=== PATIENT | female | born 1975 | race Caucasian/White ===

== ENCOUNTER 2017-09-16 05:43 | Observation (INO) ==
[2017-09-16 07:24] LABS: Basophils % 0.3 %; Eosinophils # 0.5 K/mcL (0.0-0.6); Eosinophils % 4.8 %; Hemoglobin 15.3 g/dL (11.5-15.4); Immature Granulocytes % 0.5 % (0-4); Lymphocytes # 1.5 K/mcL (0.6-4.6); Lymphocytes % 15.2 %; Mean Corpuscular HGB Conc 34.8 g/dL (31.6-35.5); Mean Corpuscular Hemoglobin 30.3 pg (28.0-33.3); Mean Corpuscular Volume 87.1 fL (83.0-100.0); Monocytes # 0.6 K/mcL (0.0-1.3); Monocytes % 5.9 %; Platelet Count 265 K/mcL (140-400); Red Blood Count 5.05 M/mcL (3.82-4.97); Red Cell Distribution Width 11.9 % (11.5-14.5); Segmented Neutrophils % 73.3 %
[2017-09-16 07:24] LABS: Bilirubin,Urine Negative (Negative); Blood,Urine Small (Negative); Clarity,Urine Clear (Clear); Color,Urine Yellow (Yellow); Glucose,Urine (UA) Normal (Normal); Ketones,Urine >=160 mg/dL (Negative); Leukocyte Esterase,Urine Negative (Negative); Nitrite,Urine Negative (Negative); PH,Urine 5.5 pH Units (5.0-8.0); Protein,Urine 100 mg/dL (Neg-Trace); Specific Gravity,Urine 1.023 (1.010-1.025); Urobilinogen,Urine Normal (Normal)
[2017-09-16] MEDS ORDERED: Ondansetron 4 MG/2 ML VIAL IVP ONE (07:26)
[2017-09-16] MEDS ORDERED: 0.9 % Sodium Chloride 1,000 ML IVC ONE (07:26)
[2017-09-16 07:27] LABS: Bacteria,Urine None Seen per hpf (None-Few); Hyaline Casts,Urine None Seen per lpf (None-Few); RBC,Urine 0-3 per hpf (0-3); Squamous Epithelial Cell,Urine Many per lpf (None-Few); WBC,Urine 0-3 per hpf (0-3)
--- NOTE | 2017-09-16 07:31 | Emergency Department Note ---
Disposition Clinical Impression: Clostridium difficile infection, Dehydration Nausea and vomiting Qualifiers: Vomiting type: unspecified Vomiting Intractability: intractable Qualified Code( s): R11.2 - Nausea with vomiting, unspecified Disposition: Admitted As Inpatient Condition: Undetermined Referrals: Janice Arevalo CNP [Primary Care Provider] - Forms: ED Satisfaction Letter Time of Disposition: 08:05 Nausea/Vomiting/Diarrhea HPI - General Chief complaint: ED Nausea/Vomiting/Diarrhea Stated complaint: C-Diff Time Seen by Provider: 09/16/17 06:33 Source: patient Mode of arrival: ambulatory Limitations: no limitations Nursing Notes Reviewed: Yes Vital Signs Reviewed: Yes - History of Present Illness HPI Narrative: 41-year-old male with diagnosis of Clostridium difficile diagnosed 2 days ago arrives to the emergency department with complaint of continued nausea and vomiting unable to take her medications or keep hydrated. The patient states that she has been experiencing intermittent episodes of upset stomach and not feeling well over the course of the past 3 weeks. The patient states that the diagnosis was made 2 days ago. By her PCP. She was given IV fluids and sent home on by mouth vancomycin. The patient states that she has continued to experience symptoms but she is now unable take her medication due to extreme nausea and vomiting. She denies any other complaints at this time. She does have dry mucous membranes. - Related Data Allergies Allergy/AdvReac Type Severity Reaction Status Date / Time No Known Allergies Allergy Verified 09/16/17 05:46 All systems ED: reviewed and negative except as stated. Constitutional: Denies: fever, chills, weakness ENT ED: Denies: throat pain, dysphagia Cardiovascular: Denies: chest pain Respiratory: Denies: dyspnea Gastrointestinal: Reports: nausea, vomiting, diarrhea. Denies: abdominal pain, constipation, hematemesis, melena, hematochezia Genitourinary: Denies: urgency, dysuria Musculoskeletal: Denies: back pain, neck pain Integumentary: Denies: rash Past Medical History - Past Medical History Attestation: Yes The following information was validated with the patient. Source: patient, old records reviewed Medical history: Reports: no medical history Surgical history: Reports: non-contributory Psychiatric history: Reports: no psych history - Social History Smoking Status: Never smoker Alcohol use: Reports: none Drug use: Reports: none Physical Exam - General Limitations: no limitations General appearance: alert, in no apparent distress - Head Head exam: atraumatic, normocephalic, normal inspection - Eye Eye exam: Present: normal appearance, PERRL, EOMI - ENT ENT exam: normal exam, normal oropharynx, mucous membranes dry - Neck Neck exam: Present: normal inspection, full ROM, trachea midline - Chest Chest inspection: Present: normal inspection, symmetric chest wall rise - Respiratory Respiratory exam: Present: normal lung sounds bilaterally - Cardiovascular Cardiovascular exam: Present: normal rhythm, tachycardia, normal heart sounds - Abdominal Exam Abdominal exam: Present: soft, Non-Tender. Absent: tenderness, distention, guarding, rebound, rigidity, pulsatile mass - Extremities Exam Extremities exam: Present: normal inspection, full ROM. Absent: tenderness, pedal edema - Neurological Exam Neurological exam: Present: alert, oriented X3 - Skin Skin exam: Present: warm, dry, intact, normal color Course Vital Signs Temperature 97.9 F 09/16/17 05:43 Pulse Rate 99 09/16/17 05:43 Respiratory Rate 20 09/16/17 05:43 Blood Pressure 100/67 09/16/17 05:43 O2 Sat by Pulse Oximetry 97 09/16/17 05:43 Temperature 97.9 F 09/16/17 05:43 Pulse Rate 99 09/16/17 05:43 Respiratory Rate 20 09/16/17 05:43 Blood Pressure 100/67 09/16/17 05:43 O2 Sat by Pulse Oximetry 97 09/16/17 05:43 Oxygen Delivery Oxygen Delivery Room Air Nausea/Vomiting/Diarrhea - MDM Narrative Medical decision making narrative: Asians workup in the emergency department demonstrates a large amount of ketones in her urine. Given the patient's inability to keep down her medications which she is on by mouth vancomycin, combined with a large amount ketones in urine, we will admit the patient to the hospital for IV hydration, nausea control. The patient will continue to receive her oral vancomycin. The patient was made aware and agrees to plan. Patient will be admitted to the hospitalist at this time. Accepted by Dr. Rodríguez. - Lab Data Lab results reviewed: Yes I reviewed the patient's lab results. Result diagrams: 09/16/17 07:11 09/16/17 07:11 Lab Results 09/16/17 09/16/17 09/16/17 Range/Units 07:11 07:11 07:14 WBC 9.6 D (4.3-11.1) K/mcL RBC 5.05 H (3.82-4.97) M/mcL Hgb 15.3 (11.5-15.4) g/dL Hct 44.0 (35.3-44.9) % MCV 87.1 (83.0-100.0) fL MCH 30.3 (28.0-33.3) pg MCHC 34.8 (31.6-35.5) g/dL RDW 11.9 (11.5-14.5) % Plt Count 265 (140-400) K/mcL MPV 9.0 L (9.4-12.4) fL Immature Gran % 0.5 (0-4) % Seg Neutrophils % 73.3 % Lymphocytes % 15.2 % Monocytes % 5.9 % Eosinophils % 4.8 % Basophils % 0.3 % Neutrophils # 7.0 (1.6-8.9) K/mcL Lymphocytes # 1.5 (0.6-4.6) K/mcL Monocytes # 0.6 (0.0-1.3) K/mcL Eosinophils # 0.5 (0.0-0.6) K/mcL Basophils # 0.0 (0.0-0.2) K/mcL Sodium 134 L (136-145) mEq/L Potassium 4.4 (3.5-5.1) mEq/L Chloride 105 (98-107) mEq/L Carbon Dioxide 11 L (23-29) mEq/L BUN 10 (6-20) mg/dL Creatinine 0.91 (0.60-1.20) mg/dL Est GFR ( Amer) > 60 (> 60) Est GFR (Non-Af Amer) > 60 (> 60) BUN/Creatinine Ratio 11 (6-26) Glucose 78 (70-105) mg/dL Calculated Osmolality 276 L (280-300) Calcium 9.2 (8.6-10.3) mg/dL Total Bilirubin 0.4 (0.3-1.0) mg/dL AST 10 L (13-39) Units/L ALT 8 (7-52) Units/L Alkaline Phosphatase 73 (34-104) Units/L Serum Total Protein 7.8 (6.4-8.9) g/dL Albumin 4.6 (3.5-5.7) g/dL Globulin 3.2 (2.4-3.5) g/dL Albumin/Globulin Ratio 1.4 (1.1-2.2) Lipase 35 (11-82) Units/L Urine Color (Yellow) Urine Clarity (Clear) Urine pH (5.0-8.0) pH Units Ur Specific [place] (1.010-1.025) Urine Protein (Neg-Trace) mg/dL Urine Glucose (UA) (Normal) mg/dL Urine Ketones (Negative) mg/dL Urine Blood (Negative) Urine Nitrite (Negative) Urine Bilirubin (Negative) Urine Urobilinogen (Normal) mg/dL Ur Leukocyte Esterase (Negative) Urine Microscopic RBC (0-3) per hpf Urine Microscopic WBC (0-3) per hpf Ur Squamous Epith Cells (None-Few) per lpf Urine Bacteria (None-Few) per hpf Hyaline Casts (None-Few) per lpf Ur Culture Indicated? (NO) Urine Test Negative (Negative) 09/16/17 Range/Units 07:19 WBC (4.3-11.1) K/mcL RBC (3.82-4.97) M/mcL Hgb (11.5-15.4) g/dL Hct (35.3-44.9) % MCV (83.0-100.0) fL MCH (28.0-33.3) pg MCHC (31.6-35.5) g/dL RDW (11.5-14.5) % Plt Count (140-400) K/mcL MPV (9.4-12.4) fL Immature Gran % (0-4) % Seg Neutrophils % % Lymphocytes % % Monocytes % % Eosinophils % % Basophils % % Neutrophils # (1.6-8.9) K/mcL Lymphocytes # (0.6-4.6) K/mcL Monocytes # (0.0-1.3) K/mcL Eosinophils # (0.0-0.6) K/mcL Basophils # (0.0-0.2) K/mcL Sodium (136-145) mEq/L Potassium (3.5-5.1) mEq/L Chloride (98-107) mEq/L Carbon Dioxide (23-29) mEq/L BUN (6-20) mg/dL Creatinine (0.60-1.20) mg/dL Est GFR ( Amer) (> 60) Est GFR (Non-Af Amer) (> 60) BUN/Creatinine Ratio (6-26) Glucose (70-105) mg/dL Calculated Osmolality (280-300) Calcium (8.6-10.3) mg/dL Total Bilirubin (0.3-1.0) mg/dL AST (13-39) Units/L ALT (7-52) Units/L Alkaline Phosphatase (34-104) Units/L Serum Total Protein (6.4-8.9) g/dL Albumin (3.5-5.7) g/dL Globulin (2.4-3.5) g/dL Albumin/Globulin Ratio (1.1-2.2) Lipase (11-82) Units/L Urine Color Yellow (Yellow) Urine Clarity Clear (Clear) Urine pH 5.5 (5.0-8.0) pH Units Ur Specific [place] 1.023 (1.010-1.025) Urine Protein 100 H (Neg-Trace) mg/dL Urine Glucose (UA) Normal (Normal) mg/dL Urine Ketones >=160 H (Negative) mg/dL Urine Blood Small H (Negative) Urine Nitrite Negative (Negative) Urine Bilirubin Negative (Negative) Urine Urobilinogen Normal (Normal) mg/dL Ur Leukocyte Esterase Negative (Negative) Urine Microscopic RBC 0-3 (0-3) per hpf Urine Microscopic WBC 0-3 (0-3) per hpf Ur Squamous Epith Cells Many H (None-Few) per lpf Urine Bacteria None Seen (None-Few) per hpf Hyaline Casts None Seen (None-Few) per lpf Ur Culture Indicated? NO (NO) Urine Test (Negative)
[2017-09-16 07:50] LABS: Alanine Aminotransferase 8 Units/L (7-52); Albumin 4.6 g/dL (3.5-5.7); Albumin/Globulin Ratio 1.4 (1.1-2.2); Alkaline Phosphatase 73 Units/L (34-104); Aspartate Amino Transferase 10 Units/L (13-39); BUN/Creatinine Ratio 11 (6-26); Bilirubin,Total 0.4 mg/dL (0.3-1.0); Blood Urea Nitrogen 10 mg/dL (6-20); Calcium 9.2 mg/dL (8.6-10.3); Carbon Dioxide 11 mEq/L (23-29); Chloride 105 mEq/L (98-107); Globulin 3.2 g/dL (2.4-3.5); Glucose 78 mg/dL (70-105); Lipase 35 Units/L (11-82); Osmolality,Calculated 276 (280-300); Potassium 4.4 mEq/L (3.5-5.1); Sodium 134 mEq/L (136-145); Total Protein 7.8 g/dL (6.4-8.9); eGFR For Non-African Americans > 60 (> 60)
--- NOTE | 2017-09-16 08:43 | Emergency Department Note ---
Disposition Clinical Impression: Clostridium difficile infection, Dehydration Nausea and vomiting Qualifiers: Vomiting type: unspecified Vomiting Intractability: intractable Qualified Code( s): R11.2 - Nausea with vomiting, unspecified Disposition: Admitted As Inpatient Condition: Fair Referrals: Janice Arevalo CNP [Primary Care Provider] - General Adult HPI - General Chief complaint: ED Nausea/Vomiting/Diarrhea Stated complaint: C-Diff Time Seen by Provider: 09/16/17 06:33 Source: patient Mode of arrival: ambulatory Limitations: no limitations Nursing Notes Reviewed: Yes Vital Signs Reviewed: Yes - History of Present Illness Pain Scale: 0 - Related Data Home Medications Medication Instructions Recorded Confirmed Fluticasone Propionate Nasal 2 spr NS DAILY PRN 09/16/17 09/16/17 [Flonase] Norethindrone [Norethindrone] 0.35 mg PO DAILY 09/16/17 09/16/17 Vits #90/Iron Fum/FA 1 tab PO DAILY 09/16/17 09/16/17 [ Formula Tablet] Vitamin B Complex [B Complex] 1 tab PO DAILY 09/16/17 09/16/17 Allergies Allergy/AdvReac Type Severity Reaction Status Date / Time No Known Allergies Allergy Verified 09/16/17 08:29 Constitutional: Denies: fever, chills, weakness ENT ED: Denies: throat pain, dysphagia Cardiovascular: Denies: chest pain Respiratory: Denies: dyspnea Gastrointestinal: Reports: nausea, vomiting, diarrhea. Denies: abdominal pain, constipation, hematemesis, melena, hematochezia Genitourinary: Denies: urgency, dysuria Musculoskeletal: Denies: back pain, neck pain Integumentary: Denies: rash Past Medical History - Past Medical History Medical history: Reports: no medical history Surgical history: Reports: non-contributory Psychiatric history: Reports: no psych history - Social History Smoking Status: Never smoker Alcohol use: Reports: none Drug use: Reports: none Physical Exam - General Limitations: no limitations General appearance: alert, in no apparent distress Course Vital Signs Temperature 97.9 F 09/16/17 05:43 Pulse Rate 99 09/16/17 05:43 Respiratory Rate 20 09/16/17 05:43 Blood Pressure 100/67 09/16/17 05:43 O2 Sat by Pulse Oximetry 97 09/16/17 05:43 Temperature 97.9 F 09/16/17 05:43 Pulse Rate 99 09/16/17 05:43 Respiratory Rate 20 09/16/17 05:43 Blood Pressure 100/67 09/16/17 05:43 O2 Sat by Pulse Oximetry 97 09/16/17 05:43 Oxygen Delivery Oxygen Delivery Room Air Medical Decision Making - Lab Data Result diagrams: 09/16/17 07:11 09/16/17 07:11 Lab Results 09/16/17 09/16/17 09/16/17 Range/Units 07:11 07:11 07:14 WBC 9.6 D (4.3-11.1) K/mcL RBC 5.05 H (3.82-4.97) M/mcL Hgb 15.3 (11.5-15.4) g/dL Hct 44.0 (35.3-44.9) % MCV 87.1 (83.0-100.0) fL MCH 30.3 (28.0-33.3) pg MCHC 34.8 (31.6-35.5) g/dL RDW 11.9 (11.5-14.5) % Plt Count 265 (140-400) K/mcL MPV 9.0 L (9.4-12.4) fL Immature Gran % 0.5 (0-4) % Seg Neutrophils % 73.3 % Lymphocytes % 15.2 % Monocytes % 5.9 % Eosinophils % 4.8 % Basophils % 0.3 % Neutrophils # 7.0 (1.6-8.9) K/mcL Lymphocytes # 1.5 (0.6-4.6) K/mcL Monocytes # 0.6 (0.0-1.3) K/mcL Eosinophils # 0.5 (0.0-0.6) K/mcL Basophils # 0.0 (0.0-0.2) K/mcL Sodium 134 L (136-145) mEq/L Potassium 4.4 (3.5-5.1) mEq/L Chloride 105 (98-107) mEq/L Carbon Dioxide 11 L (23-29) mEq/L BUN 10 (6-20) mg/dL Creatinine 0.91 (0.60-1.20) mg/dL Est GFR ( Amer) > 60 (> 60) Est GFR (Non-Af Amer) > 60 (> 60) BUN/Creatinine Ratio 11 (6-26) Glucose 78 (70-105) mg/dL Calculated Osmolality 276 L (280-300) Calcium 9.2 (8.6-10.3) mg/dL Total Bilirubin 0.4 (0.3-1.0) mg/dL AST 10 L (13-39) Units/L ALT 8 (7-52) Units/L Alkaline Phosphatase 73 (34-104) Units/L Serum Total Protein 7.8 (6.4-8.9) g/dL Albumin 4.6 (3.5-5.7) g/dL Globulin 3.2 (2.4-3.5) g/dL Albumin/Globulin Ratio 1.4 (1.1-2.2) Lipase 35 (11-82) Units/L Urine Color (Yellow) Urine Clarity (Clear) Urine pH (5.0-8.0) pH Units Ur Specific [place] (1.010-1.025) Urine Protein (Neg-Trace) mg/dL Urine Glucose (UA) (Normal) mg/dL Urine Ketones (Negative) mg/dL Urine Blood (Negative) Urine Nitrite (Negative) Urine Bilirubin (Negative) Urine Urobilinogen (Normal) mg/dL Ur Leukocyte Esterase (Negative) Urine Microscopic RBC (0-3) per hpf Urine Microscopic WBC (0-3) per hpf Ur Squamous Epith Cells (None-Few) per lpf Urine Bacteria (None-Few) per hpf Hyaline Casts (None-Few) per lpf Ur Culture Indicated? (NO) Urine Test Negative (Negative) 09/16/17 Range/Units 07:19 WBC (4.3-11.1) K/mcL RBC (3.82-4.97) M/mcL Hgb (11.5-15.4) g/dL Hct (35.3-44.9) % MCV (83.0-100.0) fL MCH (28.0-33.3) pg MCHC (31.6-35.5) g/dL RDW (11.5-14.5) % Plt Count (140-400) K/mcL MPV (9.4-12.4) fL Immature Gran % (0-4) % Seg Neutrophils % % Lymphocytes % % Monocytes % % Eosinophils % % Basophils % % Neutrophils # (1.6-8.9) K/mcL Lymphocytes # (0.6-4.6) K/mcL Monocytes # (0.0-1.3) K/mcL Eosinophils # (0.0-0.6) K/mcL Basophils # (0.0-0.2) K/mcL Sodium (136-145) mEq/L Potassium (3.5-5.1) mEq/L Chloride (98-107) mEq/L Carbon Dioxide (23-29) mEq/L BUN (6-20) mg/dL Creatinine (0.60-1.20) mg/dL Est GFR ( Amer) (> 60) Est GFR (Non-Af Amer) (> 60) BUN/Creatinine Ratio (6-26) Glucose (70-105) mg/dL Calculated Osmolality (280-300) Calcium (8.6-10.3) mg/dL Total Bilirubin (0.3-1.0) mg/dL AST (13-39) Units/L ALT (7-52) Units/L Alkaline Phosphatase (34-104) Units/L Serum Total Protein (6.4-8.9) g/dL Albumin (3.5-5.7) g/dL Globulin (2.4-3.5) g/dL Albumin/Globulin Ratio (1.1-2.2) Lipase (11-82) Units/L Urine Color Yellow (Yellow) Urine Clarity Clear (Clear) Urine pH 5.5 (5.0-8.0) pH Units Ur Specific [place] 1.023 (1.010-1.025) Urine Protein 100 H (Neg-Trace) mg/dL Urine Glucose (UA) Normal (Normal) mg/dL Urine Ketones >=160 H (Negative) mg/dL Urine Blood Small H (Negative) Urine Nitrite Negative (Negative) Urine Bilirubin Negative (Negative) Urine Urobilinogen Normal (Normal) mg/dL Ur Leukocyte Esterase Negative (Negative) Urine Microscopic RBC 0-3 (0-3) per hpf Urine Microscopic WBC 0-3 (0-3) per hpf Ur Squamous Epith Cells Many H (None-Few) per lpf Urine Bacteria None Seen (None-Few) per hpf Hyaline Casts None Seen (None-Few) per lpf Ur Culture Indicated? NO (NO) Urine Test (Negative) Attestation Statement - Attestation Attestation: I, Hermes Stern, examined this patient and my medical decision-making was reviewed with the HADOOP ADMINISTRATOR/PA/Advanced Practice Nurse/Resident Physician. I agree with the documented findings, disposition and treatment plan as described except to the extent set forth below. 41-year-old female presents emergency Department with concerns of persistent nausea vomiting diarrhea. Patient states she has had her symptoms over the past 2 weeks. She was recently diagnosed with C. difficile by her primary care provider. She was prescribed oral vancomycin to take at home however she is been unable to keep down medication secondary to persistent nausea and vomiting. Patient's laboratory results are consistent with dehydration. Patient did not feel comfortable to return home secondary to her persistent nausea despite antiemetics in the emergency department. She will be admitted for further care and evaluation and observation.
--- NOTE | 2017-09-16 09:59 | Internal Med History&Physical ---
Date of Encounter: 09/16/17 Time of Encounter: 08:00 Internal Medicine - H&P: HPI Chief complaint: Nausea and diarrhea Admitted From: Home Plans for Post Hospital Care: Home History of present illness: Patient is a 41-year-old female with no significant past medical history who presents to the ER on 09/16/17 due to nausea and vomiting with persistent diarrhea. She reports that her symptoms started approximately 2 weeks ago and was diagnosed recently by her primary care provider was C. difficile and started on oral vancomycin yesterday. Patient presented to the ER however due to persistent nausea. 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 In the ER, labs were relatively unremarkable but patient was admitted due to nausea and for IV fluids. Past Med Surg Social Fam HX - Past Medical History Medical history: no medical history Psychiatric history: no psych history - Past Surgical History Surgical History: non-contributory Additional surgical history: wisdom teeth - Social History Smoking Status: Never smoker Smokeless Tobacco Status: No Alcohol use: none Drug use: none - Additional Family History Additional family history: Noncontributory Internal Medicine - H&P: Meds Fluticasone Propionate Nasal [Flonase] 2 spr NS DAILY PRN 09/16/17 [History] Norethindrone [Norethindrone] 0.35 mg PO DAILY 09/16/17 [History] Vits #90/Iron Fum/FA [ Formula Tablet] 1 tab PO DAILY 09/16/17 [History] Vitamin B Complex [B Complex] 1 tab PO DAILY 09/16/17 [History] 3 Allergy/AdvReac Type Severity Reaction Status Date / Time No Known Allergies Allergy Verified 09/16/17 08:29 All Systems PM: A 10-system review of systems was performed and is negative for pertinent findings except as documented above in the HPI. - Constitutional Vitals: Temp Pulse Resp BP Pulse Ox 97.9 F 99 20 100/67 97 09/16/17 05:43 09/16/17 05:43 09/16/17 05:43 09/16/17 05:43 09/16/17 05:43 General appearance: Present: A&O X 3, no acute distress - Eye Eye exam: Present: normal appearance - ENT ENT exam: Present: mucous membranes dry - Respiratory Respiratory exam: Present: CTAB. Absent: accessory muscle use, rales, rhonchi, wheezes - Cardiovascular Cardiovascular exam: Present: RRR, +S1, +S2. Absent: diastolic murmur, gallop, rubs, systolic murmur - GI/Abdominal GI/Abdominal exam: Present: normal bowel sounds, soft, no peritoneal signs. Absent: distended, tenderness - Extremities Exam Extremities exam: Absent: pedal edema - Neurological Exam Neurological exam: Present: oriented X3 - Psychiatric Psychiatric exam: Present: normal mood - Skin Skin exam: Present: normal color Internal Med - H&P Results - Labs CBC & Chem 7: 09/16/17 07:11 09/16/17 07:11 - Assessment and plan (1) Clostridium difficile infection Current Visit: Yes Status: Acute Assessment and plan: Patient reports of having diarrhea since 08/29/17 and was recently diagnosed with C. difficile by primary care provider and started on oral vancomycin on 09/15 Continue oral vancomycin (2) Dehydration Current Visit: Yes Status: Acute Assessment and plan: Patient with volume loss secondary to diarrhea Will continue IV fluids (3) Nausea and vomiting Current Visit: Yes Status: Acute Assessment and plan: Give IV Zofran as needed Qualifiers: Vomiting type: unspecified Vomiting Intractability: intractable Qualified Code(s): R11.2 - Nausea with vomiting, unspecified (4) DVT prophylaxis Current Visit: Yes Status: Acute Assessment and plan: Due to patient breast-feeding will place SCDs - Time Spent With Patient Total time spent is greater than 50% in coordination of care (as documented) at patient's floor/unit and/or counseling patient:
[2017-09-16] MEDS ORDERED: Naloxone 0.4 MG/ML INJ IVP PRN (10:02)
[2017-09-16] MEDS ORDERED: Fluticasone Propionate Nasal 50 MCG/SPRAY BOTTLE NS PRN (10:06)
[2017-09-16] MEDS ORDERED: 0.9 % Sodium Chloride 1,000 ML IVC SCH (10:15)
[2017-09-16] MEDS: Acetaminophen 325 MG TABLET PO PRN ×2 (11:35→21:52)
[2017-09-16] MEDS: Vancomycin Oral Soln 125 MG/2.5 ML UDC PO SCH ×3 (13:03→21:56)
[2017-09-16] MEDS: Ondansetron 4 MG/2 ML VIAL IVP PRN (17:15)
[2017-09-16] MEDS: 0.9 % Sodium Chloride 1,000 ML IVC SCH (17:15)
[2017-09-17 04:42] LABS: Basophils # 0.1 K/mcL (0.0-0.2); Basophils % 0.7 %; Eosinophils # 1.2 K/mcL (0.0-0.6); Eosinophils % 15.8 %; Hematocrit 38.6 % (35.3-44.9); Immature Granulocytes % 0.4 % (0-4); Lymphocytes # 2.1 K/mcL (0.6-4.6); Lymphocytes % 27.8 %; Mean Corpuscular HGB Conc 34.7 g/dL (31.6-35.5); Mean Corpuscular Hemoglobin 29.6 pg (28.0-33.3); Mean Corpuscular Volume 85.2 fL (83.0-100.0); Mean Platelet Volume 9.3 fL (9.4-12.4); Monocytes # 0.7 K/mcL (0.0-1.3); Monocytes % 9.5 %; Neutrophils # 3.4 K/mcL (1.6-8.9); Platelet Count 266 K/mcL (140-400); Red Blood Count 4.53 M/mcL (3.82-4.97); Red Cell Distribution Width 12.1 % (11.5-14.5); Segmented Neutrophils % 45.8 %
[2017-09-17 04:45] LABS: Hemoglobin 13.4 g/dL (11.5-15.4)
[2017-09-17 04:55] LABS: BUN/Creatinine Ratio 9 (6-26); Blood Urea Nitrogen 7 mg/dL (6-20); Calcium 8.2 mg/dL (8.6-10.3); Carbon Dioxide 14 mEq/L (23-29); Chloride 111 mEq/L (98-107); Glucose 96 mg/dL (70-105); Osmolality,Calculated 276 (280-300); Potassium 3.7 mEq/L (3.5-5.1); Sodium 134 mEq/L (136-145); eGFR For Non-African Americans > 60 (> 60)
[2017-09-17] MEDS: 0.9 % Sodium Chloride 1,000 ML IVC SCH ×3 (06:47→16:55)
[2017-09-17] MEDS: Vancomycin Oral Soln 125 MG/2.5 ML UDC PO SCH ×4 (08:27→20:19)
[2017-09-17] MEDS: Prenatal Vit/FA 1 EACH TABLET PO SCH (08:27)
[2017-09-17] MEDS: Vitamin B Complex/Vit C/Vit E 1 EACH TABLET PO SCH (08:27)
[2017-09-17] MEDS: Ondansetron 4 MG/2 ML VIAL IVP PRN (08:27)
[2017-09-17] MEDS: NORETHINDRONE 0.35 MG PO SCH (08:28)
--- NOTE | 2017-09-17 11:17 | Internal Med Progress Note ---
Hospitalist Progress Note - Encounter Date of Encounter: 09/17/17 Time of Encounter: 11:10 - Subjective Interval History: Patient is still has nausea but denies vomiting with mild intermittent abdominal cramping, is still watery runny diarrhea but seems slowing down slightly. Denies fever chills headache dizziness chest pain shortness of breath urinary complaint. Reviewed of the lab - Exam Vitals: Temp Pulse Resp BP Pulse Ox 98.0 F 79 14 95/60 97 09/17/17 06:39 09/17/17 06:39 09/17/17 06:39 09/17/17 06:39 09/17/17 06:39 Exam: General appearance: No acute distress, A&O X 3 Head exam: Atraumatic Eye exam: EOMI, PERRLA ENT exam: Dry oral mucosa Neck nontender, supple Respiratory exam: Clear to auscultation bilaterally Cardiovascular exam: Regular rate and rhythm, no systolic murmur Abdominal exam: Soft, nontender, nondistended, positive bowel sounds Extremities exam: No calf tenderness, no pedal edema Present: Neurological exam: Alert, awake, oriented 3, CN II-XII intact, no focal deficits. No facial droop. Normal speech. - Assessment and Plan (1) Clostridium difficile infection Current Visit: Yes Status: Acute Assessment and Plan: Patient reports of having diarrhea since 08/29/17 and was recently diagnosed with C. difficile by primary care provider and started on oral vancomycin on 09/15 but could not take regularly. Her symptom is started to get worse especially with nausea and she was not able to keep down anything by mouth and felt like dehydrated therefore decided to come to ER. Continue supportive treatment with IV fluid as patient had low blood pressure therefore increase IV fluid rate 125 MR per hour for 1 L and will reevaluate the patient before deciding further IV fluid rate, clear liquid, PPI, probiotics and continue oral vancomycin. (2) Dehydration Current Visit: Yes Status: Acute Assessment and Plan: Patient with volume loss secondary to diarrhea Will continue IV fluids as mentioned above (3) Nausea and vomiting Current Visit: Yes Status: Acute Assessment and Plan: Give IV Zofran as needed (4) DVT prophylaxis Current Visit: Yes Status: Acute Assessment and Plan: SCDs and early ambulation - Time Spent with Patient Total time spent is greater than 50% in coordination of care (as documented) at patient's floor/unit and/or counseling patient: 25 - 35 minutes Internal Medicine: Result - Labs CBC & Chem 7: 09/17/17 04:06 09/17/17 04:06 Labs: Short CBC 09/17/17 Range/Units 04:06 WBC 7.5 (4.3-11.1) K/mcL Hgb 13.4 D (11.5-15.4) g/dL Hct 38.6 (35.3-44.9) % Plt Count 266 (140-400) K/mcL Neutrophils # 3.4 (1.6-8.9) K/mcL BMP 09/17/17 04:06 Sodium 134 L Potassium 3.7 Chloride 111 H Carbon Dioxide 14 L BUN 7 Creatinine 0.76 Glucose 96 Calcium 8.2 L Consult Discharge Plan - Plan Referrals: Janice Arevalo, HOUSEKEEPING STAFF [Primary Care Provider] - (3) Nausea and vomiting Qualifiers: Vomiting type: unspecified Vomiting Intractability: intractable Qualified Code(s): R11.2 - Nausea with vomiting, unspecified
[2017-09-17] MEDS: Pantoprazole 40 MG VIAL IVP SCH (13:21)
[2017-09-17] MEDS: Lactobacillus 1 EACH CAP.SPRINK PO SCH ×2 (13:22→20:19)
[2017-09-18] MEDS: 0.9 % Sodium Chloride 1,000 ML IVC SCH ×2 (00:22→08:35)
[2017-09-18] MEDS: Lactobacillus 1 EACH CAP.SPRINK PO SCH (08:34)
[2017-09-18] MEDS: Pantoprazole 40 MG VIAL IVP SCH (08:34)
[2017-09-18] MEDS: Prenatal Vit/FA 1 EACH TABLET PO SCH (08:34)
[2017-09-18] MEDS: Vancomycin Oral Soln 125 MG/2.5 ML UDC PO SCH ×2 (08:35→13:20)
[2017-09-18] MEDS: NORETHINDRONE 0.35 MG PO SCH (08:36)
[2017-09-18] MEDS: Vitamin B Complex/Vit C/Vit E 1 EACH TABLET PO SCH (08:36)
--- NOTE | 2017-09-18 14:54 | Discharge Summary ---
- NOTES TO OUTPATIENT PROVIDER Notes to Outpatient Provider: Recommend routine hospital follow-up Date of Encounter: 09/18/17 Time of Encounter: 14:53 - Discharge Diagnosis (1) Clostridium difficile infection Priority: Primary Status: Acute (2) Dehydration Priority: Primary Status: Acute (3) Nausea and vomiting Priority: Primary Status: Acute Qualifiers: Vomiting type: unspecified Vomiting Intractability: intractable Qualified Code(s): R11.2 - Nausea with vomiting, unspecified Hospital course: Ms. Negron is a 41 year old female with no significant past medical history presented to [facility] on 09/16/2017 with complaints of nausea vomiting and diarrhea. She was found to have C. difficile and was admitted for IV hydration and treatment of C. difficile. Patient reported being diagnosed outpatient by her PCP with C. difficile was started on oral vancomycin. No recent ATB use but has done a lot of recent travel therefore exposure unknown. Patient reported that vancomycin require prior authorization and she was given 5 day supply by her PCP. She was unable to tolerate oral intake therefore presented to ER. She was treated with bowel rest and IV fluids with improvement in symptoms. On day of discharge she is significantly improved. Says number and frequency of stools have decreased. She is tolerating regular diet. Requesting discharge home. Patient says she has 5 days of oral vancomycin at home and she contacted her outpatient pharmacy to agree to give for 3 days worth while they are waiting for prior authorization. Patient received 48 hours of oral vancomycin while inpatient. Discharge home and advised to continue taking vancomycin 125 mg 4 times a day to complete a total course of 10 days. Patient will follow-up with PCP. Discharge discussed with: patient (Seen and examined at bedside. Patient says she feels significantly improved and once to discharge home today. Says she has 5 days of oral vancomycin at home from her PCP and her pharmacy has agreed to give her an additional 3 days worth for a total of 8 days. Patient received 2 days' worth while in the hospital therefore she will have a total of 10 days of therapy when she is discharge. Advised to follow-up with her PCP.) - Time Spent with Patient Total time spent providing and/or coordinating discharge services: - Discharge Medications Prescriptions: Vancomycin HCl 125 mg PO QID 10 Days #40 cap Home Medications: Fluticasone Propionate Nasal [Flonase] 2 spr NS DAILY PRN 09/16/17 [History] Norethindrone 0.35 mg PO DAILY 09/16/17 [History] Vits #90/Iron Fum/FA [ Formula Tablet] 1 tab PO DAILY 09/16/17 [History] Vitamin B Complex [B Complex] 1 tab PO DAILY 09/16/17 [History] Vancomycin HCl 125 mg PO QID 10 Days #40 cap 09/18/17 [Rx] Allergies/Adverse Reactions: 3 Allergy/AdvReac Type Severity Reaction Status Date / Time No Known Allergies Allergy Verified 09/16/17 08:29 Date of admission: 09/16/17 08:09 Primary care physician: Janice Arevalo CNP Discharging clinician: Gabriella Wilson Anticipated date of discharge: 09/18/17 - Constitutional Vitals: Temp Pulse Resp BP Pulse Ox 97.8 F 78 16 99/68 98 09/18/17 10:42 09/18/17 10:42 09/18/17 10:42 09/18/17 10:42 09/18/17 10:42 General appearance: Present: A&O X 3, no acute distress - Head Head exam: Present: atraumatic, normocephalic - Eye Eye exam: Present: PERRL, conjuntiva pink, sclera anicteric Pupils: Present: PERRL - Neck Neck exam general surgery: Present: supple, trachea midline. Absent: lymphadenopathy - Respiratory Respiratory exam: Present: CTAB. Absent: accessory muscle use, rales, rhonchi, wheezes - Cardiovascular Cardiovascular exam: Present: RRR, +S1, +S2. Absent: diastolic murmur, gallop, rubs, systolic murmur - GI/Abdominal GI/Abdominal exam: Present: normal bowel sounds, soft, no peritoneal signs. Absent: distended, tenderness - Extremities Exam Extremities exam: Present: warm, radial pulses palpable and symmetrical. Absent : calf tenderness, cyanotic, pedal edema - Neurological Exam Neurological exam: Present: CN II-XII intact, oriented X3, no focal deficits. Absent: pronater drift, facial droop, speech deficit - Skin Skin exam: Present: dry, intact - Patient Status Disposition: Home, Self-Care Condition: Good Functional capacity at discharge: independent ambulation Overall status at discharge: patient is progressing back to baseline - Discharge Instructions Instructions: Clostridium Difficile Infection (DC), Vancomycin (By mouth) Follow Up With: Janice Arevalo, FACSIMILE OPERATOR [Primary Care Provider] - Forms: ED Satisfaction Letter - Diet and Activity Activity: increase activity as tolerated Diet: advance to your usual diet - VTE Documentation of Mechanical Device: Venous foot pump, device
[2017-09-18 15:42] VITALS: BP 99/65
== END 2017-09-18 16:13 | disposition home or self-care (01) ==
LOC: EMEROO 05:43 → 3ANU 05:43
PROVIDERS: ADMIT Hospitalist; ATTEND Hospitalist